=== PATIENT | female | born 1990 | race Caucasian/White ===

== ENCOUNTER 2019-12-12 19:37 | Emergency (ER) | payer MEDICAID ==
[~2019-12-12] VITALS: Ht 165.1 cm; Wt 94.0 kg
--- NOTE | 2019-12-12 20:22 | NUR ---
PT. TO ROOM FROM TRIAGE AT THIS TIME.
--- NOTE | 2019-12-12 20:41 | NUR ---
PT STATES ABOUT 8 DAYS AGO SHE STARTED HAVING A DRY COUGH, AND NAUSEA AND ABOUT 5 DAYS AGO SHE STARTED HAVING BODY ACHES AND MORE FATIGUE WITH HOUSEHOLD ACTIVITIES. PT HAS BEEN TAKING NAPROSYN THE PAST COUPLE DAYS AND THE LAST DOSE WAS AT 1900 TODAY. PT RESTING IN BED, FATIGUED, SPEECH CLEAR, NO EFFORT IN BREATHING, SPEAKING FULL SENTENCES, DIAPHORETIC. PT RESTING IN BED, ON ALL THE MONITORS, AWAITING ERP EVAL.
--- NOTE | 2019-12-12 20:54 | NUR ---
ERP IN ROOM FOR EVAL, PT TO BE SWABBED FOR COVID, ISO CART PLACED OUTSIDE OF ROOM
[2019-12-12] MEDS ORDERED: ACETAMINOPHEN 325 MG TABLET PO ONE (21:00)
[2019-12-12] MEDS ORDERED: ACETAMINOPHEN 325 MG TABLET ONE (21:02)
[2019-12-12] MEDS ORDERED: PLEASE ENTER ALLERGIES MC SCH (21:30)
[2019-12-12 21:35] LABS: BASOPHILS % (AUTO) 0 % (0-1); EOSINOPHILS # (AUTO) 0.01 x10^3/uL (0-0.4); EOSINOPHILS % (AUTO) 0 % (1-7); LYMPHOCYTES # (AUTO) 0.88 x10^3/uL (1-3.4); LYMPHOCYTES % (AUTO) 23 % (22-44); MD NO; MEAN CORPUSCULAR HEMOGLOBIN 30.1 pg (27.0-34.8); MEAN CORPUSCULAR HGB CONC 33.9 g/dL (32.4-35.8); MEAN CORPUSCULAR VOLUME 88.9 fL (80-100); MEAN PLATELET VOLUME 8.8 fL (7.4-10.4); MONOCYTES % (AUTO) 11 % (2-9); NEUTROPHILS # (AUTO) 2.58 x10^3/uL (1.8-6.8); NEUTROPHILS % (AUTO) 67 % (42-75); PLATELET COUNT 222 x10^3/uL (130-400); RED BLOOD COUNT 4.46 x10^6/uL (3.82-5.3); RED CELL DISTRIBUTION WIDTH 13.3 % (9.6-15.2)
--- NOTE | 2019-12-12 21:39 | NUR ---
PT STATES FEELING "A LITTLE BETTER" SINCE TYLENOL ADMIN. TEMP DOWN TO 100.9. AWAITING LAB RESULTS
[2019-12-12 21:46] LABS: ALANINE AMINOTRANSFERASE 22 U/L (12-78); ALBUMIN 3.6 g/dL (3.4-5.0); ANION GAP 8 mmol/L (5-15); CALCIUM 8.7 mg/dL (8.5-10.1); CHLORIDE 109 mmol/L (98-107); CREATININE 0.83 mg/dL (0.55-1.02)
[2019-12-12 21:54] LABS: ALKALINE PHOSPHATASE 84 U/L (45-117); BILIRUBIN,TOTAL 0.5 mg/dL (0.2-1.0); TOTAL PROTEIN 7.3 g/dL (6.4-8.2)
[2019-12-12 22:25] VITALS: BP 126/78
== END 2019-12-12 22:58 | disposition home or self-care (01) ==
LOC: ED 20:56
DX: B34.9 Viral infection, unspecified (principal); Z20.828 Contact with and (suspected) exposure to other viral communicable diseases; R50.9 Fever, unspecified; M79.10 Myalgia, unspecified site; R51 Headache; R00.0 Tachycardia, unspecified
CPT/HCPCS: 36415; 71045; 80053; 82728; 83605; 83615; 84145; 85025; 86140; 87635; 93005; 99285